=== PATIENT | female | born 1980 | race Caucasian/White ===

== ENCOUNTER 2024-05-28 07:50 | Emergency (ER) | payer BC ==
[~2024-05-28] VITALS: Ht 157.5 cm; Wt 77.1 kg
[2024-05-28] MEDS ORDERED: ONDANSETRON HCL/PF 4 MG/2 ML VIAL ONE (08:33)
[2024-05-28] MEDS ORDERED: MORPHINE SULFATE INJ 4 MG/ML DISP.SYRIN ONE ×3 (08:33→10:54)
[2024-05-28] MEDS: ONDANSETRON HCL/PF 4 MG/2 ML VIAL IVP ONE (08:40)
[2024-05-28] MEDS: MORPHINE SULFATE INJ 2 MG/ML DISP.SYRIN IV ONE ×2 (08:40→11:02)
[2024-05-28 09:04] LABS: BASOPHILS # (AUTO) 0.1 K/uL (0.0-0.2); BASOPHILS % (AUTO) 0.7 % (0.0-2.0); EOSINOPHILS # (AUTO) 0.1 K/uL (0.0-0.7); EOSINOPHILS % (AUTO) 1.2 % (0.0-6.0); HEMATOCRIT 36 % (33-45); HEMOGLOBIN 11.8 g/dL (11.5-14.8); LYMPHOCYTES # (AUTO) 1.6 K/uL (0.8-4.8); LYMPHOCYTES % (AUTO) 19.2 % (20.0-44.0); MEAN CORPUSCULAR HEMOGLOBIN 26 PG (26.0-33.0); MEAN CORPUSCULAR HGB CONC 33 g/dl (31.0-36.0); MEAN CORPUSCULAR VOLUME 81 fL (82-100); MONOCYTES # (AUTO) 0.4 K/uL (0.1-1.30); MONOCYTES % (AUTO) 4.7 % (2.0-12.0); NEUTROPHILS # (AUTO) 6.1 K/uL (1.8-8.9); NEUTROPHILS % (AUTO) 74.2 % (43.0-81.0); PLATELET COUNT (AUTO) 281 K/uL (150-450); RED BLOOD CELL COUNT(AUTO) 4.46 MIL/uL (4.0-5.2); RED CELL DISTRIBUTION WIDTH 15.2 % (11.5-15.0); WHITE BLOOD COUNT (AUTO) 8.2 K/uL (4.3-11.0)
[2024-05-28 09:30] LABS: CALCIUM, SERUM 8.7 mg/dL (8.5-10.1); CREATININE 0.7 mg/dL (0.6-1.3); POTASSIUM 3.5 mmol/L (3.5-5.1)
[2024-05-28 09:35] LABS: APPEARANCE,URINE CLEAR (CLEAR); BILIRUBIN,URINE NEGATIVE (NEGATIVE); BLOOD, URINE 2+ Ery/uL (NEGATIVE); COLOR,URINE YELLOW (YELLOW); KETONES,URINE NEGATIVE (NEGATIVE); LEUKOCYTE ESTERASE ,URINE NEGATIVE (NEGATIVE); NITRITE, URINE NEGATIVE (NEGATIVE); PROTEIN,URINE TRACE mg/dl (NEGATIVE); UGLUCOSE NEGATIVE (NEGATIVE); UROBILINOGEN,URINE 0.2 EU/dL (0.2)
[2024-05-28 09:45] LABS: RBC,URINE 21-50 /HPF (0-2)
[2024-05-28 09:46] LABS: ADD URINE CULTURE NO; BACTERIA,URINE Few /HPF (None Seen); MUCUS,URINE Few /LPF (None Seen)
[2024-05-28] MEDS ORDERED: ACETAMINOPHEN ES 500 MG TABLET ONE (10:43)
[2024-05-28] MEDS: ACETAMINOPHEN ES 500 MG TABLET PO ONE (11:02)
[2024-05-28] MEDS ORDERED: CYCL10TA9 PO (11:55)
[2024-05-28] MEDS ORDERED: HYDR-4303 PO (11:55)
[2024-05-28] MEDS ORDERED: ACET-2605 PO (11:55)
[2024-05-28] MEDS ORDERED: LIDO30AD10 TP (11:55)
[2024-05-28] MEDS ORDERED: LIDOCAINE 5% (PATCH) 1 EA PATCH TP ONE (12:05)
[2024-05-28] MEDS ORDERED: CYCLOBENZAPRINE 10 MG TABLET ONE (12:05)
[2024-05-28] MEDS: CYCLOBENZAPRINE 10 MG TABLET PO ONE (12:14)
[2024-05-28] MEDS: LIDOCAINE 5% (PATCH) 1 EA PATCH TP SCH (12:14)
[2024-05-28 12:20] VITALS: BP 130/77; TEMP 98.7; O2SAT 98
== END 2024-05-28 12:21 | disposition home or self-care (01) ==
LOC: ER 08:06
DX: O09.521 Supervision of elderly multigravida, first trimester (principal); O46.91 Antepartum hemorrhage, unspecified, first trimester; N80.123 Deep endometriosis of bilateral ovaries; R10.2 Pelvic and perineal pain; Z3A.01 Less than 8 weeks gestation of pregnancy
CPT/HCPCS: 99285; 96374; 76856; 96375; 96376; 85025; 80048; 81001; 36415; 84702; J2270 ×3; J2405

== ENCOUNTER 2024-05-28 13:23 | Emergency (ER) | payer BC ==
[~2024-05-28] VITALS: Ht 157.5 cm; Wt 77.1 kg
[~2024-05-28 13:23] MED LIST: ACET-2605 PO; CYCL10TA9 PO; HYDR-4303 PO; LIDO30AD10 TP
[2024-05-28 13:52] VITALS: BP 133/72; TEMP 98.3; O2SAT 99
== END 2024-05-28 14:52 | disposition left against medical advice (07) ==
LOC: ER 14:51
DX: R10.9 Unspecified abdominal pain (principal); Z53.21 Procedure and treatment not carried out due to patient leaving prior to being seen by health care provider